=== PATIENT | female | born 1985 | race Caucasian/White ===

== ENCOUNTER 2021-07-28 00:33 | Emergency (ER) | payer MEDICAID ==
[~2021-07-28] VITALS: Ht 158 cm; Wt 71.4 kg
[~2021-07-28 00:33] MED LIST: FERR325E14 PO; PREN-385 PO
[2021-07-28 00:50] VITALS: BP 141/85
--- NOTE | 2021-07-28 00:53 | NUR ---
PT TAKEN TO BED 12.
--- NOTE | 2021-07-28 02:00 | NUR ---
35 Y.O. F BIB SELF C/O LEFT ARM NUMBESS X3HRS. PT REPORTS DIZZINESS. PT DENIES ANY PAIN JUST THAT HER ARM IS TINGLY AND "FEELS LIKE THERE IS A BALL IN HER HAND". DENIES INJURY OR SLEPT ON IT WRONG. SPEECH IS CLEAR AND IS AOX4. THERE ARE NO OTHER SYMPOTOMS PRESENT AT THIS TIME. NO SOB OR CHEST PAIN. GCS 15 WITH STABLE VITALS. DENIES HX, RX AND ALLERGIES
--- NOTE | 2021-07-28 02:00 | NUR ---
ERMD AT BEDSIDE ASSESSING PT
[2021-07-28] MEDS ORDERED: ACETAMINOPHEN EXTRA STRENGTH 500 MG TAB PO ONE (02:05)
[2021-07-28] MEDS ORDERED: IBUPROFEN 600 MG TAB PO ONE (02:05)
[2021-07-28 02:19] LABS: BASOPHILS # (AUTO) 0.2 K/uL (0.00-0.22); BASOPHILS % (AUTO) 2.3 % (0.0-2.0); EOSINOPHILS # (AUTO) 0.3 K/uL (0-0.4); EOSINOPHILS % (AUTO) 3.7 % (0.0-4.0); HEMATOCRIT 36.9 % (36-48); HEMOGLOBIN 12.4 g/dL (12.0-16.0); LYMPHOCYTES # (AUTO) 1.4 K/uL (2.5-16.5); LYMPHOCYTES % (AUTO) 17.7 % (20.5-51.1); MEAN CORPUSCULAR HEMOGLOBIN 29 pg (27-31); MEAN CORPUSCULAR HGB CONC 34 g/dL (33-37); MEAN CORPUSCULAR VOLUME 84.5 fL (80-94); MONOCYTES # (AUTO) 0.4 K/uL (0.8-1.0); MONOCYTES % (AUTO) 4.5 % (1.7-9.3); NEUTROPHILS # (AUTO) 5.7 K/uL (1.8-7.7); NEUTROPHILS % (AUTO) 71.8 % (42.2-75.2); PLATELET COUNT (AUTO) 306 K/uL (140-450); RED BLOOD CELL COUNT(AUTO) 4.36 MIL/uL (4.20-5.40); RED CELL DISTRIBUTION WIDTH 13.7 % (11.6-13.7); WHITE BLOOD COUNT (AUTO) 7.9 K/uL (4.8-10.8)
[2021-07-28 02:28] LABS: ANION GAP 10.6 (8-16); CARBON DIOXIDE 29.4 mmol/L (21-32); CREATININE 0.6 mg/dL (0.6-1.3)
[2021-07-28 03:02] VITALS: BP 141/85
--- NOTE | 2021-07-28 03:04 | NUR ---
Patient discharged with v/s stable. Written and verbal after care instructions given and explained. Patient verbalized understanding. Ambulatory with steady gait. All questions addressed prior to discharge. Advised to follow up with PMD.
== END 2021-07-28 03:02 | disposition home or self-care (01) ==
LOC: MED 00:33
DX: R42 Dizziness and giddiness (principal); R55 Syncope and collapse; R20.2 Paresthesia of skin; Z79.899 Other long term (current) drug therapy
CPT/HCPCS: 36415; 80048; 84484; 85025; 93005; 99284

== ENCOUNTER 2021-09-26 18:44 | Emergency (ER) | payer MEDICAID ==
[~2021-09-26] VITALS: Ht 154.9 cm; Wt 71.7 kg
[2021-09-26 19:14] VITALS: BP 136/80
[2021-09-26 19:51] LABS: BASOPHILS # (AUTO) 0.1 K/uL (0.00-0.22); BASOPHILS % (AUTO) 0.7 % (0.0-2.0); EOSINOPHILS # (AUTO) 0.2 K/uL (0-0.4); HEMATOCRIT 37.4 % (36-48); HEMOGLOBIN 12.4 g/dL (12.0-16.0); LYMPHOCYTES # (AUTO) 1.7 K/uL (2.5-16.5); LYMPHOCYTES % (AUTO) 20.7 % (20.5-51.1); MEAN CORPUSCULAR HEMOGLOBIN 28 pg (27-31); MEAN CORPUSCULAR HGB CONC 33 g/dL (33-37); MEAN CORPUSCULAR VOLUME 84.7 fL (80-94); MONOCYTES # (AUTO) 0.5 K/uL (0.8-1.0); MONOCYTES % (AUTO) 5.5 % (1.7-9.3); NEUTROPHILS # (AUTO) 5.8 K/uL (1.8-7.7); NEUTROPHILS % (AUTO) 71.1 % (42.2-75.2); PLATELET COUNT (AUTO) 294 K/uL (140-450); RED BLOOD CELL COUNT(AUTO) 4.41 MIL/uL (4.20-5.40); RED CELL DISTRIBUTION WIDTH 13.9 % (11.6-13.7); WHITE BLOOD COUNT (AUTO) 8.2 K/uL (4.8-10.8)
--- NOTE | 2021-09-26 22:15 | NUR ---
ERMD AT BEDSIDE EXAMINING PT
--- NOTE | 2021-09-26 22:15 | NUR ---
35 Y/O FEMALE BIBS FROM HOME, C/O OF PELVIC PAIN/DIARRHEA X2DAYS. DENIES ANY ABD PAIN, NAUSEA/VOMITING. A/OX4, UNLABORED BREATHING, AMBULATORY. DENIES FEVER, COUGH, CP, OR SOB. NKA PMH: DENIES
[2021-09-26] MEDS ORDERED: KETOROLAC 60 MG/2 ML VIAL IM ONE (22:25)
[2021-09-26] MEDS ORDERED: IBUP-2213 PO (22:43)
[2021-09-26] MEDS ORDERED: ACET-8386 PO (22:43)
[2021-09-26 22:50] VITALS: BP 128/78
--- NOTE | 2021-09-26 22:51 | NUR ---
Patient discharged with v/s stable. Written and verbal after care instructions given and explained. Patient alert, oriented and verbalized understanding of instructions. Ambulatory with to car. All questions addressed prior to discharge. ID band removed. Patient advised to follow up with PMD. Rx of NORCO AND IBUPROFEN given. Patient educated on indication of medication including possible reaction and side effects. Opportunity to ask questions provided and answered. VSS, A/OX4, UNLABORED BREATHING, AMBULATORY, AND CALM DEMEANOR.
== END 2021-09-26 22:48 | disposition home or self-care (01) ==
LOC: MED 18:44
DX: R10.2 Pelvic and perineal pain (principal); Z20.822 Contact with and (suspected) exposure to COVID-19; Z79.899 Other long term (current) drug therapy
CPT/HCPCS: 36415; 76830; 81002; 81025; 85025; 96372; 99284; J1885; Q0092